=== PATIENT | female | born 2000 | race Caucasian/White ===

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

== ENCOUNTER 2021-04-09 18:59 | Emergency (ER) | payer MEDICAID ==
[~2021-04-09] VITALS: Ht 154.9 cm; Wt 40.0 kg
[2021-04-09] MEDS ORDERED: IBUPROFEN 600MG TABLET PO STA (22:19)
[2021-04-09] MEDS ORDERED: ACETAMINOPHEN 325MG TABLET PO STA (22:19)
[2021-04-09] MEDS ORDERED: LIDOCAINE 5% PATCH TOP SCH (23:30)
[2021-04-09 23:48] VITALS: BP 106/66
[2021-04-10] MEDS ORDERED: IBUP-2028 MT (00:03)
[2021-04-10] MEDS ORDERED: LIDO1ADH23 TP (00:03)
[2021-04-10] MEDS ORDERED: TOPUD PO (00:03)
== END 2021-04-10 00:14 | disposition home or self-care (01) ==
LOC: ER 18:59
DX: R07.81 Pleurodynia (principal); M54.50 Low back pain, unspecified; F12.10 Cannabis abuse, uncomplicated; Z90.49 Acquired absence of other specified parts of digestive tract; Z91.018 Allergy to other foods; Y04.0XXA Assault by unarmed brawl or fight, initial encounter; Y07.03 Male partner, perpetrator of maltreatment and neglect; Y93.89 Activity, other specified; Y92.018 Other place in single-family (private) house as the place of occurrence of the external cause
CPT/HCPCS: 71046; 93005; 99283